=== PATIENT | female | born 1975 | race Caucasian/White ===

== ENCOUNTER 2022-08-02 12:01 | Outpatient (CLI) | payer BC | END 2022-08-02 12:02 | disposition home or self-care (01) | LOC: CSHRAD 12:01 | PROVIDERS: ATTEND Internal Medicine Rheumatology | DX: M46.1 Sacroiliitis, not elsewhere classified (principal) | CPT/HCPCS: 72202 ==

== ENCOUNTER 2024-10-22 12:47 | Emergency (ER) | payer BC ==
[2024-10-22] MEDS ORDERED: Famotidine/PF 20 mg/2ml Vial ONE (13:02)
[2024-10-22] MEDS ORDERED: methylPREDNISolone Sod Succ/PF 125 MG/2 ML VIAL ONE (13:02)
== END 2024-10-22 16:22 | disposition home or self-care (01) ==
LOC: CSHERS 12:47
DX: T78.1XXA Other adverse food reactions, not elsewhere classified, initial encounter (principal); E11.9 Type 2 diabetes mellitus without complications; I10 Essential (primary) hypertension
CPT/HCPCS: 96374; 96375; J2919; J3490